=== PATIENT | female | born 1960 | race Hispanic/Latino ===

== ENCOUNTER 2018-04-12 07:31 | Day surgery (SDC) | payer OTHER ==
--- OUTSIDE RECORDS SUMMARY | 2018-04-12 07:34 | XMS REPORT | Clinical Summary ---
:1960 Author Organization [facility] Address [address] [place] [address] Care Team Providers Name Role Phone Oh Rosales Primary Care Provider Allergies Active Allergy Reactions Severity Noted Date Comments Codeine Itching 04/07/2016 Hydromorphone (Bulk) Itching 04/07/2016 Medications Medication Sig Dispensed Refills Start Date End Date Status amLODIPine (NORVASC) Take 5 mg by mouth 0 Active 5 MG tablet daily. pregabalin (LYRICA) Take 150 mg by mouth 0 Active 150 MG capsule 2 (two) times daily. rosuvastatin Take 10 mg by mouth 0 Active (CRESTOR) 10 MG nightly. tablet losartan (COZAAR) Take 100 mg by mouth 0 Active 100 MG tablet daily. esomeprazole Take 40 mg by mouth 0 Active (NEXIUM) 40 MG daily. capsule metFORMIN Take 1,000 mg by 0 Active (GLUCOPHAGE) 1000 MG mouth 2 (two) times tablet daily with breakfast and dinner. liraglutide 0.6 Inject 1.8 mg 0 Active mg/0.1 mL (18 mg/3 subcutaneously mL) PnIj nightly . sertraline (ZOLOFT) Take 100 mg by mouth 0 Active 100 MG tablet daily. INSULIN DEGLUDEC Inject 100 Units 0 Active (TRESIBA FLEXTOUCH subcutaneously U-100 SUBQ) nightly . montelukast Take 10 mg by mouth 0 Active (SINGULAIR) 10 mg nightly. tablet levothyroxine Take 100 mcg by 0 Active (SYNTHROID, mouth Every morning LEVOTHROID) 100 MCG on an empty stomach. tablet Active Problems Problem Noted Date Renal mass 04/18/2016 Malignant neoplasm of left kidney 04/18/2016 Social History Tobacco Use Types Packs/Day Years Used Date Never Smoker Alcohol Use Drinks/Week oz/Week Comments Yes 6 Glasses of wine 3.6 Sex Assigned at Date Recorded Not on file Job Start Date Occupation Industry Not on file Not on file Not on file Travel History Travel Start Travel End No recent travel history available. Last Filed Vital Signs Not on file Plan of Treatment Not on file Results Not on fileafter 04/11/2017 Insurance Payer Benefit Plan / Group Subscriber ID Type Phone Address OTHER-COMMERCIAL GENERIC COMMERCIAL xxxxxxxxxxx COVENTRY/[employer] [facility]/CCN xxxxxxxxxxx PPO Advance Directives For more information, please contact:[facility] [address] [place], [place] [phone] Code Status Date Activated Date Inactivated Comments Full Code 04/18/2016 5:23 PM 04/20/2016 12:59 PM This code status was determined by: Patient
[2018-04-12] MEDS ORDERED: NA CHLORIDE 0.9% 1,000 ML ONE (08:14)
[2018-04-12] MEDS ORDERED: MIDAZOLAM HCL 2 MG/2 ML INJ ONE (08:38)
[2018-04-12] MEDS ORDERED: PROPOFOL 200 MG/20 ML VIAL IV ONE (08:38)
[2018-04-12] MEDS ORDERED: LIDOCAINE 1% MPF 5 ML VIAL ONE (08:38)
[2018-04-12 09:13] VITALS: TEMP 97.4
[2018-04-12 09:15] VITALS: BP 120/56; O2SAT 98
[2018-04-12] MEDS ORDERED: EPINEPHRINE/PF 1 MG/ML AMP ONE (09:16)
--- NOTE | 2018-04-12 09:20 | ENDO RPT ---
[address], [address] EGD PROCEDURE REPORT EXAM DATE: 04/12/2018 PATIENT NAME: Luana Ibarra MR#: [id number] BIRTHDATE: 1960 ATTENDING: Tha Mcallister DR STATUS: outpatient SENIOR RESEARCH EXECUTIVE: Lilo Mistry RN, Blanquita Lugo, and Derrick Lugo INDICATIONS: The patient is a 57 yr old Female here for an EGD due to epigastric pain and follow-up of polyp PROCEDURE PERFORMED: EGD with snare polypectomy and EGD with biopsy for H. pylori MEDICATIONS: Per Anesthesia. TOPICAL ANESTHETIC: none CONSENT: The patient understands the risks and benefits of the procedure and understands that these risks include, but are not limited to: sedation, allergic reaction, infection, perforation and/or bleeding. Alternative means of evaluation and treatment include, among others: physical exam, x-rays, and/or surgical intervention. The patient elects to proceed with this endoscopic procedure. DESCRIPTION OF PROCEDURE: During intra-op preparation period all mechanical medical equipment was checked for proper function. Hand hygiene and appropriate measures for infection prevention was taken. Procedure, possible complications, and alternatives including but not limited to the possibility of bleeding, perforation, tear, infection, sepsis, need for surgery, need for blood transfusion, and anesthesia related complications were explained to the patient. After the risks, benefits and alternatives of the procedure were thoroughly explained, Informed consent was verified, confirmed and timeout was successfully executed by the treatment team. The patient was placed in the left lateral position. The patient was anesthetized with topical anesthesia. Through the anesthetized oropharyngeal area, the scope was passed without any difficulty. The Pentax EG-[id number] ([id number]) endoscope was introduced through the mouth and advanced to the second portion of the duodenum. Polyposis, Gastritis - diffuse linear. The gastroscope was then slowly withdrawn and removed. Erythema was found in the total stomach. A biopsy for H. pylori was taken. A large pedunculated polyp was found in the antrum, it was erythematous, friable, fleshy, with a white patchy colonies embedded. The polyp was raised with Saline and Epinepherine Injection 2cc each. Then the polyp was snared, then cauterized with monopolar cautery. The Polyp was retrieved using overtube and basket retrieval system, and sent to pathology. An additional polyp was removed from the incisa angularis with cold forcepts, the entire polyp was removed and the location was cauterized with monopolar cautery. The polyp was sent to pathology. Moderate gastritis was found in the total stomach with linear erythematous streaking. A biopsy for H. pylori was taken. Duodenitis was found in the bulb and descending duodenum. A polyp was removed from the dudoenal bulb and sent for pathology. Touch Monopolar Cautery was used in the duodenal biopsy site. A biopsy for H. pylori was taken. There are multiple small sessile polyps in entire stomach, all erythematous. ADVERSE EVENTS: There were no complications. IMPRESSIONS: 1. Erythema was found in the total stomach 2. A pedunculated polyp was found in the antrum 3. Moderate gastritis was found in the total stomach 4. Duodenitis was found in the bulb and descending duodenum 5. Multiple small sessile polyps in entire stomach, all erythematous RECOMMENDATIONS: 1. acid suppression therapy 2. anti-reflux regimen 3. await biopsy results 4. avoid NSAIDS 5. follow-up: office 2 week(s) 6. follow-up of helicobacter pylori status, treat if indicated 7. Liquid Diet for 2 days, supplement with Ensure 4 times per day 8. Genetic testing for polyposis syndrome REPEAT EXAM: Return in 6 month(s) for EGD. Tha Mcallister DR eSigned: Tha Mcallister DR 04/12/2018 9:10 AM cc: CPT CODES: ICD9 CODES: PATIENT NAME: Luana Ibarra MR#: [id number]
== END 2018-04-12 09:25 | disposition home or self-care (01) ==
LOC: OR 07:31
PROVIDERS: ATTEND Surgery
PROC: 0DB98ZX Excision of Duodenum, Via Natural or Artificial Opening Endoscopic, Diagnostic (ICD-10-PCS; 2018-04-12)
PROC: 0DB68ZX Excision of Stomach, Via Natural or Artificial Opening Endoscopic, Diagnostic (ICD-10-PCS; 2018-04-12)
PROC: 0DB68ZX Excision of Stomach, Via Natural or Artificial Opening Endoscopic, Diagnostic (ICD-10-PCS; principal; 2018-04-12 08:30)
DX: K29.50 Unspecified chronic gastritis without bleeding (principal); K31.7 Polyp of stomach and duodenum; K29.80 Duodenitis without bleeding; K21.0 Gastro-esophageal reflux disease with esophagitis; E11.9 Type 2 diabetes mellitus without complications; I10 Essential (primary) hypertension; E78.00 Pure hypercholesterolemia, unspecified; G47.33 Obstructive sleep apnea (adult) (pediatric); Z90.49 Acquired absence of other specified parts of digestive tract; Z88.6 Allergy status to analgesic agent; Z80.0 Family history of malignant neoplasm of digestive organs; Z82.49 Family history of ischemic heart disease and other diseases of the circulatory system
CPT/HCPCS: 82962; 88305; 88312; J0171; J2250; J2704; J7030

== ENCOUNTER 2019-03-23 07:30 | Day surgery (SDC) | payer OTHER ==
[2019-03-23] MEDS: NA CHLORIDE 0.9% 1,000 ML ONE ×2 (07:30→08:15)
--- OUTSIDE RECORDS SUMMARY | 2019-03-23 07:35 | XMS REPORT ---
:1960 Author Organization e[employer] Care Team Providers Name Role Phone Richie Hughes Provider Role Unavailable Allergies, Adverse Reactions, Alerts Substance Reaction Event Type Dilaudid Info Not Available Drug Allergy Problems Problem Type Condition Code Onset Dates Condition Status Problem Chronic GERD K21.9 Active Problem Gastric polyposis K31.7 Active Problem Primary osteoarthritis of left knee M17.12 Active Assessment Pain, joint, knee, left M25.562 Active Assessment Primary osteoarthritis of left knee M17.12 Active Problem Multiple gastric polyps K31.7 Active Medications Medication Code Code Instructions Start End Status Dosage System Date Date Crestor [facility] 95060733180 10 MG Orally Active 1 tablet Once a day Lyrica [facility] 41337773818 150 MG Orally Active 1 capsule Once a day Zoloft [facility] 60897626947 100 mg Oral Active 2 tab Metformin HCl ND 94034160667 1000 MG Orally Active 1 tablet Once a day with a meal Synthroid [facility] 89765506777 100 MCG Orally Active 1 tablet on Once a day an empty stomach in the morning Cozaar [facility] 66709081233 100 MG Orally Active 1 tablet Once a day Omeprazole [place] 24029244260 40 MG Orally BID July Active 1 capsule 2018 Victoza [facility] 67144171855 18 MG/3ML Active as directed Subcutaneous Prilosec [facility] 16977741069 20 MG Orally Active 1 tablet Once a day Norvasc [facility] 73624252562 5 MG Orally Once Active 1 tablet a day Singulair [facility] 70254293325 10 MG Orally Active 1 tablet Once a day Results No Known Results Summary Purpose eClinicalWorks Submission
--- OUTSIDE RECORDS SUMMARY | 2019-03-23 07:35 | XMS REPORT ---
:1960 Author Organization [employer] Care Team Providers Name Role Phone Richie Hughes Provider Role Unavailable Allergies, Adverse Reactions, Alerts Substance Reaction Event Type Dilaudid Info Not Available Drug Allergy Problems Problem Type Condition Code Onset Dates Condition Status Assessment Primary osteoarthritis of left knee M17.12 Active Assessment Primary osteoarthritis of right knee M17.11 Active Problem Primary osteoarthritis of right knee M17.11 Active Problem Primary osteoarthritis of left knee M17.12 Active Problem GERD without esophagitis K21.9 Active Problem Multiple gastric polyps K31.7 Active Problem Chronic GERD K21.9 Active Problem Gastric polyposis K31.7 Active Medications Medication Code Code Instructions Start End Status Dosage System Date Date Synthroid [facility] 71490868607 100 MCG Orally Active 1 tablet on Once a day an empty stomach in the morning Singulair [facility] 41157507964 10 MG Orally Active 1 tablet Once a day Zoloft [facility] 26141215645 100 mg Oral Active 2 tab Metformin HCl ND 23774029579 1000 MG Orally Active 1 tablet Once a day with a meal Cozaar [facility] 61227128435 100 MG Orally Active 1 tablet Once a day Lyrica ND 86830136742 150 MG Orally Active 1 capsule Once a day Victoza [facility] 25168783780 18 MG/3ML Active as directed Subcutaneous Omeprazole [facility] 82104482814 40 MG Orally BID Inge Active 1 capsule 2018 [facility]ilosec [facility] 17520459786 20 MG Orally Active 1 tablet Once a day Norvasc [facility] 88756767878 5 MG Orally Once Active 1 tablet a day Crestor [facility] 39298432036 10 MG Orally Active 1 tablet Once a day Results No Known Results Summary Purpose eClinicalWorks Submission
--- OUTSIDE RECORDS SUMMARY | 2019-03-23 07:35 | XMS REPORT ---
[...] knee M17.12 Active Assessment Primary osteoarthritis of left knee M17.12 Active Problem Multiple gastric polyps K31.7 Active Medications Medication Code Code Instructions Start End Status Dosage System Date Date Norvasc [facility] 69381387757 5 MG Orally Once Active 1 tablet a day Lyrica [facility] 31187485312 150 MG Orally Active 1 capsule Once a day Synthroid [facility] 83895649315 100 MCG Orally Active 1 tablet on Once a day an empty stomach in the morning Cozaar [facility] 74478612893 100 MG Orally Active 1 tablet Once a day Omeprazole [facility] 30457793954 40 MG Orally BID July Active 1 capsule 2018 Crestor [facility] 40804223274 10 MG Orally Active 1 tablet Once a day Prilosec [facility] 11145844595 20 MG Orally Active 1 tablet Once a day Metformin HCl [facility] 05912547209 1000 MG Orally Active 1 tablet Once a day with a meal Zoloft [facility] 68226860889 100 mg Oral Active 2 tab Victoza [facility] 01006255663 18 MG/3ML Active as directed Subcutaneous Singulair [facility] 78662015388 10 MG Orally Active 1 tablet Once a day Results No Known Results Summary Purpose eClinicalWorks Submission
--- OUTSIDE RECORDS SUMMARY | 2019-03-23 07:35 | XMS REPORT ---
:1960 Author Organization [employer] Care Team Providers Name Role Phone Richie Hughes Provider Role Unavailable Allergies No Known Allergies Problems Problem Type Condition Code Onset Dates Condition Status Problem Primary osteoarthritis of left knee M17.12 Active Problem Chronic GERD K21.9 Active Problem Primary osteoarthritis of right knee M17.11 Active Problem Gastric polyposis K31.7 Active Problem Multiple gastric polyps K31.7 Active Medications No Known Medications Results No Known Results Summary Purpose eClinicalWorks Submission
--- OUTSIDE RECORDS SUMMARY | 2019-03-23 07:35 | XMS REPORT ---
:1960 Author Organization [employer] Care Team Providers Name Role Phone Tha Mcallister Provider Role Unavailable Allergies, Adverse Reactions, Alerts Substance Reaction Event Type Dilaudid Info Not Available Drug Allergy Problems Problem Type Condition Code Onset Dates Condition Status Assessment GERD without esophagitis K21.9 Active Problem Primary osteoarthritis of right knee M17.11 Active Problem Primary osteoarthritis of left knee M17.12 Active Problem GERD without esophagitis K21.9 Active Problem Multiple gastric polyps K31.7 Active Problem Chronic GERD K21.9 Active Problem Gastric polyposis K31.7 Active Medications Medication Code Code Instructions Start End Status Dosage System Date Date Singulair [facility] 39639640315 10 MG Orally Active 1 tablet Once a day Cozaar [facility] 82493182009 100 MG Orally Active 1 tablet Once a day Victoza [facility] 27387670618 18 MG/3ML Active as directed Subcutaneous Metformin HCl [facility] 32880514374 1000 MG Orally Active 1 tablet Once a day with a meal Synthroid [facility] 41781685785 100 MCG Orally Active 1 tablet on Once a day an empty stomach in the morning Lyrica [facility] 36782999856 150 MG Orally Active 1 capsule Once a day Zoloft [facility] 58159256393 100 mg Oral Active 2 tab [facility]osec [facility] 58385275140 20 MG Orally Active 1 tablet Once a day Omeprazole [facility] 80195906300 40 MG Orally BID Inge Active 1 capsule 2018 Norvasc [facility] 20281834904 5 MG Orally Once Active 1 tablet a day Crestor [facility] 68094882601 10 MG Orally Active 1 tablet Once a day Results No Known Results Summary Purpose eClinicalWorks Submission
--- OUTSIDE RECORDS SUMMARY | 2019-03-23 07:35 | XMS REPORT ---
:1960 Author Organization [employer]Works Care Team Providers Name Role Phone Richie Hughes Provider Role Unavailable Allergies, Adverse Reactions, Alerts Substance Reaction Event Type Dilaudid Info Not Available Drug Allergy Problems Problem Type Condition Code Onset Dates Condition Status Assessment Primary osteoarthritis of right knee M17.11 Active Problem Primary osteoarthritis of left knee M17.12 Active Problem Chronic GERD K21.9 Active Problem Primary osteoarthritis of right knee M17.11 Active Assessment Primary osteoarthritis of left knee M17.12 Active Problem Gastric polyposis K31.7 Active Problem Multiple gastric polyps K31.7 Active Medications Medication Code Code Instructions Start End Status Dosage System Date Date Synthroid [facility] 04750381737 100 MCG Orally Active 1 tablet on Once a day an empty stomach in the morning Cozaar [facility] 52725135541 100 MG Orally Active 1 tablet Once a day Omeprazole [facility] 18943945999 40 MG Orally BID July Active 1 capsule 2018 [facility]c [facility] 41574310333 20 MG Orally Active 1 tablet Once a day Singulair [facility] 78294655682 10 MG Orally Active 1 tablet Once a day Crestor [facility] 55357786605 10 MG Orally Active 1 tablet Once a day Victoza [facility] 11041061660 18 MG/3ML Active as directed Subcutaneous Zoloft [facility] 73735277955 100 mg Oral Active 2 tab Metformin HCl [facility] 44295527726 1000 MG Orally Active 1 tablet Once a day with a meal Norvasc [facility] 79557979116 5 MG Orally Once Active 1 tablet a day Lyrica [facility] 66483260840 150 MG Orally Active 1 capsule Once a day Results No Known Results Summary Purpose eClinicalWorks Submission
--- OUTSIDE RECORDS SUMMARY | 2019-03-23 07:35 | XMS REPORT ---
[...] Start End Status Dosage System Date Date Lyrica [facility] 47490905000 150 MG Orally Active 1 capsule Once a day Singulair [facility] 33287645926 10 MG Orally Active 1 tablet Once a day Zoloft [facility] 55672843455 100 mg Oral Active 2 tab Metformin HCl [facility] 15981837479 1000 MG Orally Active 1 tablet Once a day with a meal Crestor [facility] 94661315373 10 MG Orally Active 1 tablet Once a day Synthroid [facility] 98499358357 100 MCG Orally Active 1 tablet on Once a day an empty stomach in the morning Omeprazole [facility] 49834914474 40 MG Orally BID Inge Active 1 capsule 2018 Victoza [facility] 80776775866 18 MG/3ML Active as directed Subcutaneous [facility] 44726568655 20 MG Orally Active 1 tablet Once a day Norvasc [facility] 28058017485 5 MG Orally Once Active 1 tablet a day Cozaar [facility] 56602878497 100 MG Orally Active 1 tablet Once a day Results No Known Results Summary Purpose eClinicalWorks Submission
[2019-03-23] MEDS ORDERED: LIDOCAINE 1% MPF 30 ML VIAL ONE (08:01)
[2019-03-23] MEDS ORDERED: PROPOFOL 200 MG/20 ML VIAL IV ONE ×3 (08:01→08:58)
--- NOTE | 2019-03-23 09:28 | ENDO RPT ---
[address], [address] EGD PROCEDURE REPORT EXAM DATE: 03/23/2019 PATIENT NAME: Luana Ibarra MR#: [id number] BIRTHDATE: 1960 ATTENDING: Tha Mcallister DR STATUS: outpatient AUTO SERVICE INSTRUCTOR: Nika Mckeon RN and Derrick Lugo INDICATIONS: The patient is a 58 yr old Female here for an EGD due to follow-up of polyp, dyspepsia, and GERD PROCEDURE PERFORMED: EGD with snare polypectomy MEDICATIONS: Per Anesthesia. TOPICAL ANESTHETIC: none CONSENT: The patient understands the risks and benefits of the procedure and understands that these risks include, but are not limited to: sedation, allergic reaction, infection, perforation and/or bleeding. Alternative means of evaluation and treatment include, among others: physical exam, x-rays, and/or surgical intervention. The patient elects to proceed with this endoscopic procedure. DESCRIPTION OF PROCEDURE: During intra-op preparation period all mechanical medical equipment was checked for proper function. Hand hygiene and appropriate measures for infection prevention was taken. Procedure, possible complications, and alternatives including but not limited to the possibility of bleeding, perforation, tear, infection, sepsis, need for surgery, need for blood transfusion, and anesthesia related complications were explained to the patient. After the risks, benefits and alternatives of the procedure were thoroughly explained, Informed consent was verified, confirmed and timeout was successfully executed by the treatment team. The patient was placed in the left lateral position. The patient was anesthetized with topical anesthesia. Through the anesthetized oropharyngeal area, the scope was passed without any difficulty. The EC-[id number] ([id number]) and Pentax EG-[id number] ([id number]) endoscope was introduced through the mouth and advanced to the third portion of the duodenum. Retroflexion was not performed. The gastroscope was then slowly withdrawn and removed. A pedunculated polyp was found in the bulb and descending duodenum. likely benign erythematous fleshy friable pedunculated Polyp was snared, then cauterized with monopolar cautery. Polyp was retrieved and sent to pathology. A pedunculated polyp was found in the body and the antrum of the stomach. edematous erythematous pedunculated polypoid red. There were several polyps of the duodenal bulb and antrum of the stomach. All polyps were not removed due to desaturation and difficulty with airway management, and as such this portion of the procedure was incomplete. Polyps remain, and I will plan to return for EGD in next few weeks after discussion of optimal airway control for EGD as it will likely require more time due to number of polyps noted. ADVERSE EVENTS: There were no complications. IMPRESSIONS: 1. A pedunculated polyp was found in the bulb and descending duodenum 2. A pedunculated polyp was found in the body and the antrum of the stomach RECOMMENDATIONS: 1. anti-reflux regimen 2. acid suppression therapy 3. await biopsy results 4. follow-up: office 2 week(s) 5. avoid NSAIDS REPEAT EXAM: Return in 1 month(s) for EGD. Unable to complete due to difficulty with anesthesia Tha Mcallister DR eSigned: Tha Mcallister DR 03/23/2019 9:28 AM cc: CPT CODES: ICD9 CODES: PATIENT NAME: Luana Ibarra MR#: [id number]
--- NOTE | 2019-03-23 09:32 | ENDO RPT ---
[address], [address] COLONOSCOPY PROCEDURE REPORT EXAM DATE: 03/23/2019 PATIENT NAME: Luana Ibarra MR #: [id number] BIRTHDATE: 1960 ATTENDING: Tha Mcallister DR STATUS: outpatient [employer]ING [employer] HAND: Nika Mckeon RN and Derrick Lugo INDICATIONS: The patient is a 58 yr old Female here for a colonoscopy due to colon cancer screening PROCEDURE PERFORMED: Colonoscopy with biopsy - cold polypectomy MEDICATIONS: Per Anesthesia. ESTIMATED BLOOD LOSS: None CONSENT: The patient understands the risks and benefits of the procedure and understands that these risks include, but are not limited to: sedation, allergic reaction, infection, perforation and/or bleeding. Alternative means of evaluation and treatment include, among others: physical exam, x-rays, and/or surgical intervention. The patient elects to proceed with this endoscopic procedure. DESCRIPTION OF PROCEDURE: During intra-op preparation period all mechanical medical equipment was checked for proper function. Hand hygiene and appropriate measures for infection prevention was taken. Procedure, possible complications, alternatives including, but not limited to possibility of bleeding, perforation, tear, infection, sepsis, need for surgery, need for blood transfusion, were explained to the patient. After the risks, benefits and alternatives of the procedure were thoroughly explained, Informed consent was verified, confirmed and timeout was successfully executed by the treatment team. The patient was placed in the left lateral position. A digital rectal exam was performed and revealed external hemorrhoids. After appropriate level of anesthesia, the scope was passed. The EC-[id number] ([id number]) endoscope was introduced through the anus and advanced to the cecum, which was identified by both the appendix and ileocecal valve. The quality of the prep was good. The instrument was then slowly withdrawn as the colon was fully examined. Scope withdrawal time was 10 minutes. COLON FINDINGS: A small polypoid shaped and smooth pedunculated polyp was found at the splenic flexure and in the transverse colon. A polypectomy was performed with a cold snare. The resection was complete, the polyp tissue was completely retrieved and sent to histology. Mild diverticulosis was noted in the sigmoid colon. No bleeding was noted from the diverticulosis. Small external hemorrhoids were found. Retroflexed views revealed no abnormalities. The scope was then completely withdrawn from the patient and the procedure terminated. ADVERSE EVENTS: There were no complications. IMPRESSIONS: Pedunculated polyp was found at the splenic flexure and in the transverse colon RECOMMENDATIONS: 1. avoid NSAIDS for 2 weeks 2. await biopsy results 3. follow-up: office 2 week(s) 4. Monitor for any evidence of rectal bleeding. 5. See EGD report. 6. yearly hemoccult starting in 4 years 7. hemorrhoidal hygiene 8. low fiber / diverticular diet 9. increase dietary water RECALL: Return in 5 year(s) for Colonoscopy, pending biopsy results. Pending Biopsy Results Tha Mcallister DR eSigned: Tha Mcallister DR 03/23/2019 9:31 AM cc: CPT CODES: ICD9 CODES: PATIENT NAME: Luana Ibarra MR#: [id number]
[2019-03-23 09:50] VITALS: TEMP 97.8
[2019-03-23 10:07] VITALS: BP 116/62; O2SAT 97
== END 2019-03-23 10:05 | disposition home or self-care (01) ==
LOC: OR 07:30
PROVIDERS: ATTEND Surgery
PROC: 0DBL8ZX Excision of Transverse Colon, Via Natural or Artificial Opening Endoscopic, Diagnostic (ICD-10-PCS; principal; 2019-03-23 08:30)
PROC: 0DB98ZX Excision of Duodenum, Via Natural or Artificial Opening Endoscopic, Diagnostic (ICD-10-PCS; 2019-03-23 08:30)
DX: K31.7 Polyp of stomach and duodenum (principal); Z12.11 Encounter for screening for malignant neoplasm of colon; D12.3 Benign neoplasm of transverse colon; K57.90 Diverticulosis of intestine, part unspecified, without perforation or abscess without bleeding; K21.9 Gastro-esophageal reflux disease without esophagitis; K64.4 Residual hemorrhoidal skin tags; E11.9 Type 2 diabetes mellitus without complications; I10 Essential (primary) hypertension; E78.5 Hyperlipidemia, unspecified; E03.9 Hypothyroidism, unspecified; E66.9 Obesity, unspecified; Z88.6 Allergy status to analgesic agent; Z85.53 Personal history of malignant neoplasm of renal pelvis; Z95.810 Presence of automatic (implantable) cardiac defibrillator
CPT/HCPCS: 45385; 43251; 82947; 88305; J2704 ×3; J7030

== ENCOUNTER 2019-04-15 06:29 | Day surgery (SDC) | payer OTHER ==
--- OUTSIDE RECORDS SUMMARY | 2019-04-15 06:30 | XMS REPORT ---
[...] End Status Dosage System Date Date Crestor [facility] [id number] 10 MG Orally Active 1 tablet Once a day Lyrica [facility] 98090363988 150 MG Orally Active 1 capsule Once a day Zoloft [facility] 47553923298 100 mg Oral Active 2 tab Metformin HCl ND 55390379164 1000 MG Orally Active 1 tablet Once a day with a meal Synthroid [facility] 16232634403 100 MCG Orally Active 1 tablet on Once a day an empty stomach in the morning Cozaar [facility] 28121900632 100 MG Orally Active 1 tablet Once a day Omeprazole ND 52123749499 40 MG Orally BID July Active 1 capsule 2018 Victoza [facility] 35114827884 18 MG/3ML Active as directed Subcutaneous Prilosec [facility] 71636453019 20 MG Orally Active 1 tablet Once a day Norvasc [facility] 08806054818 5 MG Orally Once Active 1 tablet a day Singulair [facility] 98115441425 10 MG Orally Active 1 tablet Once a day Results No Known Results Summary Purpose eClinicalWorks Submission
--- OUTSIDE RECORDS SUMMARY | 2019-04-15 06:30 | XMS REPORT ---
[...] End Status Dosage System Date Date Norvasc [facility] 97183531331 5 MG Orally Once Active 1 tablet a day Lyrica [facility] 89551554739 150 MG Orally Active 1 capsule Once a day Synthroid [facility] 00567281008 100 MCG Orally Active 1 tablet on Once a day an empty stomach in the morning Cozaar [facility] 01713028599 100 MG Orally Active 1 tablet Once a day Omeprazole [facility] 73579231594 40 MG Orally BID July Active 1 capsule 2018 Crestor [facility] 78528636004 10 MG Orally Active 1 tablet Once a day Prilosec [facility] 51445137874 20 MG Orally Active 1 tablet Once a day Metformin HCl [facility] 15737096993 1000 MG Orally Active 1 tablet Once a day with a meal Zoloft [facility] 44980097084 100 mg Oral Active 2 tab Victoza [facility] 09398809410 18 MG/3ML Active as directed Subcutaneous Singulair [facility] 80775399041 10 MG Orally Active 1 tablet Once a day Results No Known Results Summary Purpose eClinicalWorks Submission
--- OUTSIDE RECORDS SUMMARY | 2019-04-15 06:31 | XMS REPORT ---
[...] End Status Dosage System Date Date Lyrica [facility] 79844845103 150 MG Orally Active 1 capsule Once a day Singulair [facility] 19469254756 10 MG Orally Active 1 tablet Once a day Zoloft [facility] 15983426395 100 mg Oral Active 2 tab Metformin HCl [facility] 62029080497 1000 MG Orally Active 1 tablet Once a day with a meal Crestor [facility] 60866398773 10 MG Orally Active 1 tablet Once a day Synthroid [facility] 79421177316 100 MCG Orally Active 1 tablet on Once a day an empty stomach in the morning Omeprazole [facility] 42695933900 40 MG Orally BID Inge Active 1 capsule 2018 Victoza [facility] 80652933373 18 MG/3ML Active as directed Subcutaneous [facility] 77378091949 20 MG Orally Active 1 tablet Once a day Norvasc [facility] 82341691454 5 MG Orally Once Active 1 tablet a day Cozaar [facility] 83103669332 100 MG Orally Active 1 tablet Once a day Results No Known Results Summary Purpose eClinicalWorks Submission
--- OUTSIDE RECORDS SUMMARY | 2019-04-15 06:31 | XMS REPORT ---
[...] End Status Dosage System Date Date Synthroid [facility] 76679151850 100 MCG Orally Active 1 tablet on Once a day an empty stomach in the morning Cozaar [facility] 78404821568 100 MG Orally Active 1 tablet Once a day Omeprazole [facility] 30184390931 40 MG Orally BID July Active 1 capsule 2018 [facility] 74990711875 20 MG Orally Active 1 tablet Once a day Singulair [facility] 21319611366 10 MG Orally Active 1 tablet Once a day Crestor [facility] 69220388593 10 MG Orally Active 1 tablet Once a day Victoza [facility] 40205815880 18 MG/3ML Active as directed Subcutaneous Zoloft [facility] 40964757458 100 mg Oral Active 2 tab Metformin HCl [facility] 43897959568 1000 MG Orally Active 1 tablet Once a day with a meal Norvasc [facility] 34902178743 5 MG Orally Once Active 1 tablet a day Lyrica [facility] 21614914835 150 MG Orally Active 1 capsule Once a day Results No Known Results Summary Purpose eClinicalWorks Submission
--- OUTSIDE RECORDS SUMMARY | 2019-04-15 06:31 | XMS REPORT ---
[...] End Status Dosage System Date Date Singulair [facility] 94205101368 10 MG Orally Active 1 tablet Once a day Cozaar [facility] 90582464390 100 MG Orally Active 1 tablet Once a day Victoza [facility] 59398703042 18 MG/3ML Active as directed Subcutaneous Metformin HCl [facility] 15746603003 1000 MG Orally Active 1 tablet Once a day with a meal Synthroid [facility] 90386939271 100 MCG Orally Active 1 tablet on Once a day an empty stomach in the morning Lyrica [facility] 83032051173 150 MG Orally Active 1 capsule Once a day Zoloft [facility] 20352158342 100 mg Oral Active 2 tab [facility] 0733456[facility] 20 MG Orally Active 1 tablet Once a day Omeprazole [facility] 77511249024 40 MG Orally BID Inge Active 1 capsule 2018 Norvasc [facility] 55670559030 5 MG Orally Once Active 1 tablet a day Crestor [facility] 18249093075 10 MG Orally Active 1 tablet Once a day Results No Known Results Summary Purpose eClinicalWorks Submission
--- OUTSIDE RECORDS SUMMARY | 2019-04-15 06:31 | XMS REPORT ---
[...] End Status Dosage System Date Date Synthroid [facility] 27471228942 100 MCG Orally Active 1 tablet on Once a day an empty stomach in the morning Singulair [facility] 86892307709 10 MG Orally Active 1 tablet Once a day Zoloft [facility] 74345747723 100 mg Oral Active 2 tab Metformin HCl ND 62912333932 1000 MG Orally Active 1 tablet Once a day with a meal Cozaar [facility] 82229431352 100 MG Orally Active 1 tablet Once a day Lyrica ND 68333018255 150 MG Orally Active 1 capsule Once a day Victoza [facility] 96027431267 18 MG/3ML Active as directed Subcutaneous Omeprazole [facility] 42198082361 40 MG Orally BID Inge Active 1 capsule 2018 [facility]ilosec [facility] 96608388027 20 MG Orally Active 1 tablet Once a day Norvasc [facility] 38573095115 5 MG Orally Once Active 1 tablet a day Crestor [facility] 96179421129 10 MG Orally Active 1 tablet Once a day Results No Known Results Summary Purpose eClinicalWorks Submission
[2019-04-15] MEDS ORDERED: NA CHLORIDE 0.9% 1,000 ML ONE (06:40)
[2019-04-15] MEDS ORDERED: MIDAZOLAM HCL 2 MG/2 ML INJ ONE ×2 (07:30→07:37)
[2019-04-15] MEDS ORDERED: FENTANYL CITR 100 MCG/2 ML ONE (07:36)
[2019-04-15] MEDS ORDERED: propofoL 200 MG/20 ML VIAL IV ONE (07:37)
[2019-04-15] MEDS ORDERED: ROCURONIUM 50 MG/5 ML VIAL IV ONE (07:37)
[2019-04-15] MEDS ORDERED: LIDOCAINE 1% MPF 5 ML VIAL ONE (07:37)
[2019-04-15] MEDS ORDERED: ONDANSETRON 4 MG/2 ML VIAL ONE (08:27)
[2019-04-15] MEDS ORDERED: SUCCINYLCHOLINE 20 MG/ML (10 ML) IV ONE (08:27)
[2019-04-15 08:42] VITALS: O2SAT 95
[2019-04-15 13:43] VITALS: BP 126/66; TEMP 97.2
== END 2019-04-15 09:37 | disposition home or self-care (01) ==
LOC: OR 06:29
PROVIDERS: ATTEND Surgery
PROC: 0DB68ZX Excision of Stomach, Via Natural or Artificial Opening Endoscopic, Diagnostic (ICD-10-PCS; 2019-04-15)
PROC: 0DB98ZX Excision of Duodenum, Via Natural or Artificial Opening Endoscopic, Diagnostic (ICD-10-PCS; principal; 2019-04-15 07:30)
DX: K31.7 Polyp of stomach and duodenum (principal); K29.40 Chronic atrophic gastritis without bleeding; K21.0 Gastro-esophageal reflux disease with esophagitis; K44.9 Diaphragmatic hernia without obstruction or gangrene; E11.9 Type 2 diabetes mellitus without complications; I10 Essential (primary) hypertension; E07.9 Disorder of thyroid, unspecified; Z88.6 Allergy status to analgesic agent
CPT/HCPCS: 88312; 82947 ×2; 88305; 43251; J2704; J0330; J2250 ×2; J3010; J7030; J2405